=== PATIENT | male | born 2000 | race Caucasian/White ===

== ENCOUNTER 2021-03-12 07:17 | Emergency (ER) | payer BC, SELFPAY ==
[2021-03-12 07:19] VITALS: BP 142/76; PULSE 86; RESP 14; TEMP 36.8; O2SAT 96; BMI 25.7
--- NOTE | 2021-03-12 07:27 | NURSING ---
NO OLD EKGS
--- NOTE | 2021-03-12 07:35 | EKG12_ITS ---
Test Reason : SYNCOPE Blood Pressure : / mmHG Vent. Rate : 057 BPM Atrial Rate : 057 BPM P-R Int : 152 ms QRS Dur : 110 ms QT Int : 388 ms P-R-T Axes : 054 067 032 degrees QTc Int : 377 ms Sinus bradycardia with marked sinus arrhythmia Incomplete right bundle branch block Borderline ECG Confirmed by SHAW KNOTT, ESTEFANI ([id number]), globe changer MCKAY VENTURA ([id number]) on 03/13/2021 12:24:57 PM Referred By: GILDA Confirmed By:ESTEFANI SQUIRES MD
--- NOTE | 2021-03-12 07:38 | EDS_ITS ---
HPI History of Present Illness Chief Complaint: Syncope Narrative Narrative: 20-year-old male presenting for evaluation after having 1 episode of near syncope and 2 episodes of syncope this morning. He states the initial episode started when he was getting in the shower and he was able to squat down and stop himself from fainting. The last 2 episodes he woke up on the floor. He is not having any pain from the fall. He states he feels otherwise fine. He states recently that his mother who is a churn operator margarine put him on Bactrim for a staph infection on his foot. He states that the foot has improved and is basically gone. He states he has felt rundown the last couple of days. He has had the chills without a fever. He does not have a cough. No change in taste or smell. PFSH PFSH Allergy/AdvReac Type Severity Reaction Status Date / Time No Known Allergies Allergy Verified 03/12/21 07:18 Social History Smoking Status: Never smoker ROS ROS ED Constitutional Constitutional ED: Reports chills; Denies fever(s), subjective or sweats Eyes Eyes: Denies blurry vision or change in vision ENT ENT ED: Denies ear pain or rhinorrhea Cardiovascular Cardiovascular: Reports other Details: Syncopal episodes ; Denies chest pain or palpitations Respiratory/Chest Respiratory/Chest: Denies cough or dyspnea Gastrointestinal Gastrointestinal: Denies abdominal pain, nausea or vomiting Genitourinary Genitourinary ED: Denies dysuria, hematuria or urinary frequency Musculoskeletal Musculoskeletal: Denies arthralgias or myalgias Integumentary Reports rash Neurologic Neurologic: Denies headache(s), paresthesias or weakness Psychiatric Psychiatric: Denies anxiety or depression EXAM Physical Exam Const Vital Signs: 03/12/21 07:19 03/12/21 07:47 03/12/21 07:49 Temperature 98.2 F Temperature Source Temporal Pulse Rate 86 Pulse Rate [Lying] Pulse Rate [Sitting] Pulse Rate [Standing] Respiratory Rate 14 Respiratory Pattern Normal Blood Pressure 142/76 H Blood Pressure [Lying] Blood Pressure [Sitting] Blood Pressure [Standing] Blood Pressure Mean 98 Blood Pressure Mean [Lying] Blood Pressure Mean [Sitting] Blood Pressure Mean [Standing] Pulse Ox 96 94 Oxygen Delivery Method Room Air Room Air 03/12/21 08:15 Temperature Temperature Source Pulse Rate Pulse Rate [Lying] 61 Pulse Rate [Sitting] 84 Pulse Rate [Standing] 105 H Respiratory Rate Respiratory Pattern Blood Pressure Blood Pressure [Lying] 147/64 H Blood Pressure [Sitting] 116/64 Blood Pressure [Standing] 103/53 L Blood Pressure Mean Blood Pressure Mean [Lying] 91 Blood Pressure Mean [Sitting] 81 Blood Pressure Mean [Standing] 69 Pulse Ox Oxygen Delivery Method Positive well nourished General Appearance ED: NAD HEENT Reports moist mucous membranes Negative for trauma or tenderness Eyes PERRL and EOMs intact bilaterally Chest Wall inspection of chest normal and palpation of chest normal Resp normal respiratory effort and clear to auscultation bilaterally Cardio regular rate and regular rhythm GI normal to inspection, nondistended, normoactive bowel sounds Extremity normal to inspection General Extremety ED: Negative for tenderness Neuro oriented x3 and CN's II-XII intact bilaterally Sensorium / Orientation: alert Motor Exam: strength 5/5 throughout Psych mental status grossly normal Skin no rashes or lesions noted and no wounds Skin Narrative: Previous area of rash that patient points to on his toes of the right foot has resolved. MDM MDM MDM Narrative Medical decision making narrative: Patient presenting for episodes of syncope. He is denying any chest pain or shortness of breath. He does feel as if he has mild cold symptoms. Patient states that he believes he hit his head but he does not have any neurologic deficits on exam. EKG performed on arrival shows a sinus bradycardia at 57 bpm and there is a sinus arrhythmia. I do not see any Brugada, WPW. I did review this EKG with Dr. Diego who agrees. Patient had orthostatic vital signs performed and his blood pressures went up. He did become a little tachycardic at 105 bpm. Patient is well-appearing and otherwise stable and asymptomatic on orthostatics so I think he is okay to increase his p.o. fluids. I do not see a need to give him IV fluids at this time. I did attempt to have a obtain a chest x-ray however the patient refuses this. Patient also refuses CT of the brain. His blood work is consistent with a viral syndrome however his Covid testing is negative. I will give him a referral to cardiology. Patient amenable to this plan. Patient here for discharge. Impression: 1. Syncope 2. Sinus arrhythmia Lab Data Attestation: I reviewed the patient's lab results. Labs: Laboratory Results - last 24 hr 03/12/21 03/12/21 07:30 07:30 WBC 4.3 L RBC 5.20 Hgb 15.8 Hct 46.9 MCV 90.2 MCH 30.4 MCHC 33.7 RDW Std Deviation 39.4 RDW Coeff of Sonny 11.9 Plt Count 105 L MPV 11.0 Immature Gran % (Auto) 0.200 Neut % (Auto) 69.5 Lymph % (Auto) 16.2 L Pike % (Auto) 13.4 H Eos % (Auto) 0.2 Baso % (Auto) 0.5 Absolute Neuts (auto) 3.0 Absolute Lymphs (auto) 0.69 L Nucleated RBC % 0 Sodium 137 Potassium 3.8 Chloride 102 Carbon Dioxide 28.0 Anion Gap 7 BUN 15 Creatinine 1.10 Estim Creat Clear Calc 123.51 Est GFR (MDRD) Af Amer 108 Est GFR (MDRD) Non-Af 90 BUN/Creatinine Ratio 13.6 Glucose 149 H Calcium 9.1 Magnesium 2.1 Troponin I High Sens 3.8 Discharge Plan Triage Chief Complaint: Syncope ED Provider: Yovani Cochran Dx/Rx/DC Orders Instructions: ED About Arrhythmias, ED Fainting, Uncertain Cause Referrals: Chalino Willett [Other] - As Needed Maximilian Camargo MD [STAFF PHYSICIAN] - As soon as possible Disposition Disposition: Home, Self Care
[2021-03-12 07:47] VITALS: O2SAT 94
[2021-03-12 07:53] LABS: Absolute Lymphocyte Count 0.69 X10^3/uL (0.83-4.51); Basophil# 0.02 X10^3/uL; Basophil% 0.5 % (0-1); Eosinophil# 0.01 X10^3/uL; Eosinophils% 0.2 % (0-5); Hematocrit 46.9 % (40-54); Hemoglobin 15.8 g/dL (13.0-16.5); Lymphocyte # 0.69 X10^3/ul (0.83-4.51); Lymphocyte % 16.2 % (19-41); Mean Corp Hgb Conc 33.7 g/dL (32-36); Mean Corpuscular Hgb 30.4 pg (27.0-32.0); Mean Corpuscular Volume 90.2 fL (80-94); Monocyte# 0.57 X10^3/uL; Monocyte% 13.4 % (0-10); NRBC Flagged by Analyzer 0 % (0-5); Neutrophil # 2.96 X10^3/uL (2.7-7.7); Neutrophil % 69.5 % (47-70); Platelet Count 105 K/mm3 (150-450); RBC Distribution Width CV 11.9 % (11.6-14.6); RBC Distribution Width SD 39.4 fl (35.1-43.9); White Blood Count 4.3 K/mm3 (4.4-11.0)
[2021-03-12 08:14] LABS: Anion Gap 7 (5-15); BUN 15 mg/dL (7-18); BUN/Creat Ratio 13.6 RATIO (10-20); Calcium,Total 9.1 mg/dL (8.5-10.1); Chloride 102 mmol/L (98-107); EST Glomerular Filtration Rate 90 mL/min (>60); Est Glom Filt Rate - Afr Amer 108 mL/min (>60); Estimated Creatinine Clearance 123.51 ml/min; Glucose 149 mg/dL (74-106); Magnesium 2.1 mg/dL (1.6-2.6); Potassium 3.8 mmol/L (3.5-5.1); Sodium Level 137 mmol/L (136-145); Troponin-I HS 3.8 pg/mL (3.0-78.5)
[2021-03-12 08:15] VITALS: BP 103/53; BP 116/64; BP 147/64; PULSE 105; PULSE 61; PULSE 84
[2021-03-12 09:56] VITALS: BP 135/63; PULSE 55; RESP 16; O2SAT 98
== END 2021-03-12 09:59 | disposition home or self-care (01) ==
PROVIDERS: Emergency Provider Student in an Organized Health Care Education/Training Program
DX: R55 Syncope and collapse (principal); I49.8 Other specified cardiac arrhythmias; Z20.822 Contact with and (suspected) exposure to COVID-19
CPT/HCPCS: 80048; 83735; 84484; 85025; 87426; 93005; 99285; A4216

== ENCOUNTER 2021-03-15 08:57 | Emergency (ER) | payer BC, SELFPAY ==
[2021-03-15 08:59] VITALS: BP 139/82; PULSE 79; RESP 16; TEMP 36.4; O2SAT 96; BMI 25.7
[2021-03-15] MEDS: Ketorolac 15 MG/ML Vial IM (09:23)
--- NOTE | 2021-03-15 10:08 | EX.ED.DYSGE1 ---
HPI History of Present Illness Chief Complaint: Weakness Informant: patient Narrative Narrative: 20-year-old male presents with concern for arthralgias, headache, rash. Patient's mother white shoe examiner concern for Lyme disease. Seen a few days ago with syncope and feeling unwell. Negative work-up at that time. States he developed a rash on his back. 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 PFSH PFSH Home Medications doxycycline hyclate 100 mg PO BID 28 Days #56 tab 03/15/21 [Rx Last Taken Unknown] Allergy/AdvReac Type Severity Reaction Status Date / Time No Known Allergies Allergy Verified 03/15/21 09:01 Social History Smoking Status: Never smoker ROS ROS ED Constitutional Constitutional ED: Denies chills, fever(s) or sweats Eyes Eyes: Denies blurry vision, change in vision or diplopia ENT ENT ED: Denies rhinorrhea or sore throat Cardiovascular Cardiovascular: Denies chest pain, orthopnea, palpitations or racing heartbeat Respiratory/Chest Respiratory/Chest: Denies cough, dyspnea, dyspnea on exertion, orthopnea or sputum Gastrointestinal Gastrointestinal: Denies abdominal pain, constipation, diarrhea, melena, nausea or vomiting Genitourinary Genitourinary ED: Denies dysuria, hematuria or urinary frequency Musculoskeletal Musculoskeletal: Reports arthralgias and myalgias; Denies neck pain Integumentary Reports rash Neurologic Neurologic: Reports headache(s); Denies paresthesias or weakness Psychiatric Psychiatric: Denies anxiety or depression Hematologic/Lymphatic Hematologic/Lymphatic: Denies easy bleeding or easy bruising Allergic/Immunologic Allergic/Immunologic ED: Denies mouth swelling or tongue swelling EXAM Physical Exam Const Vital Signs: 03/15/21 08:59 03/15/21 09:20 Temperature 97.5 F L Temperature Source Temporal Pulse Rate 79 Respiratory Rate 16 Respiratory Effort Normal Non-Labored Blood Pressure 139/82 H Blood Pressure Mean 101 Pulse Ox 96 Oxygen Delivery Method Room Air Positive well nourished and well developed General Appearance ED: well developed HEENT Reports TM's clear and moist mucous membranes normocephalic and atraumatic Tympanic Membrane ED: Yes TM's clear Eyes PERRL and EOMs intact bilaterally Neck no lymphadenopathy, supple and no JVD Chest Wall inspection of chest normal Resp normal respiratory effort and clear to auscultation bilaterally Cardio regular rate, S1 normal heart sound, S2 normal heart sound and no murmurs Peripheral Pulses: pulses 2+ throughout GI soft to palpation, non-tender and non-distended Back/Spine no CVA tenderness and no thoracic nor lumbar tenderness Extremity normal to inspection General Extremety ED: Negative for edema or tenderness General Extremity: Negative for edema Neuro oriented x3, CN's II-XII intact bilaterally and no sensory deficits noted Sensorium / Orientation: alert Motor Exam: strength 5/5 throughout Psych mental status grossly normal Skin Skin Narrative: Targetoid rash to the right mid posterior back. No surrounding cellulitis. MDM MDM MDM Narrative Medical decision making narrative: Patient appears well and nontoxic. Afebrile. Lyme test drawn. Patient given intramuscular Toradol. Will be given doxycycline twice a day for the next 28 days. Asked to follow-up with primary care physician. Patient agreeable and discharged home in stable condition. Discharge Plan Triage Chief Complaint: Weakness ED Provider: Jose Lynn Dx/Rx/DC Orders Clinical Impression: Acute Lyme disease Instructions: ED Lyme Disease Prescriptions: New doxycycline hyclate 100 mg tablet 100 mg PO BID 28 Days Qty: 56 RF: 0 Referrals: Chalino Willett [Other] Disposition Disposition: Home, Self Care
[2021-03-15 10:49] VITALS: BP 116/65; PULSE 54; RESP 16; O2SAT 97
[2021-03-15 10:55] LABS: Lyme Ab Screen Interpretation REF LAB
[2021-03-15 11:00] LABS: Absolute Lymphocyte Count 1.27 X10^3/uL (0.83-4.51); Absolute Neutrophil Count 3.1 X10^3/uL (2.0-7.7); Basophil# 0.01 X10^3/uL; Basophil% 0.2 % (0-1); Eosinophil# 0.03 X10^3/uL; Eosinophils% 0.6 % (0-5); Hematocrit 39.1 % (40-54); Hemoglobin 13.5 g/dL (13.0-16.5); Lymphocyte # 1.27 X10^3/ul (0.83-4.51); Lymphocyte % 24.9 % (19-41); Mean Corp Hgb Conc 34.5 g/dL (32-36); Mean Corpuscular Hgb 30.7 pg (27.0-32.0); Mean Corpuscular Volume 88.9 fL (80-94); Monocyte# 0.71 X10^3/uL; Monocyte% 13.9 % (0-10); NRBC Flagged by Analyzer 0 % (0-5); Neutrophil # 3.08 X10^3/uL (2.7-7.7); Neutrophil % 60.2 % (47-70); Platelet Count 100 K/mm3 (150-450); RBC Distribution Width CV 11.8 % (11.6-14.6); RBC Distribution Width SD 38.7 fl (35.1-43.9); White Blood Count 5.1 K/mm3 (4.4-11.0)
[2021-03-20 15:11] LABS: Lyme Scn Total Ab w/Rflx <0.91 ISR (0.00-0.90)
== END 2021-03-15 10:54 | disposition home or self-care (01) ==
PROVIDERS: Emergency Provider Emergency Medicine
DX: A69.20 Lyme disease, unspecified (principal)
CPT/HCPCS: 85025; 86618; 96372; 99282